=== PATIENT | female | born 1935 | race Caucasian/White ===

== ENCOUNTER 2022-06-14 08:34 | Day surgery (SDC) | payer MEDICARE ==
[2022-06-13 14:55] VITALS: BMI 29.9
[2022-06-14 10:56] LABS: Anion Gap 15 mmol/L (10-20); BUN (Urea Nitrogen) 14 mg/dL (9.8-20.1); Calc. Creatinine Clearance 109 mL/min (70-130); Carbon Dioxide 26 mmol/L (23-31); Chloride 102 mmol/L (98-107); Estimated GFR 91; Glucose 159 mg/dL (83-110); Sodium 139 mmol/L (136-145)
[2022-06-14] MEDS ORDERED: Fentanyl 100 MCG/2 ML VIAL ONE (11:45)
[2022-06-14] MEDS ORDERED: Midazolam HCl 2 mg/2 ml Vial ONE (11:45)
[2022-06-14] MEDS ORDERED: Ondansetron PF 4 MG/2 ML Vial ONE (11:45)
[2022-06-14] MEDS ORDERED: PROPOFOL 20 ML ONE (11:45)
[2022-06-14] MEDS ORDERED: Dexamethasone 20 MG/5 ML VIAL ONE (11:45)
[2022-06-14] MEDS ORDERED: Lidocaine 2% PF 5 ML VIAL ONE (11:45)
[2022-06-14] MEDS ORDERED: Oxymetazoline HCl 0.05% ( 15 ML ) ONE (13:22)
== END 2022-06-14 15:30 | disposition home or self-care (01) ==
LOC: CSHSDC 08:34
PROVIDERS: ATTEND Otolaryngology Otolaryngic Allergy
PROC: 093K8ZZ Control Bleeding in Nasal Mucosa and Soft Tissue, Via Natural or Artificial Opening Endoscopic (ICD-10-PCS; principal; 2022-06-14)
DX: R04.0 Epistaxis (principal); E04.0 Nontoxic diffuse goiter; H90.3 Sensorineural hearing loss, bilateral; F41.9 Anxiety disorder, unspecified; F32.A Depression, unspecified; Z79.2 Long term (current) use of antibiotics; Z79.899 Other long term (current) drug therapy; Z20.822 Contact with and (suspected) exposure to COVID-19; Z87.891 Personal history of nicotine dependence; Z98.890 Other specified postprocedural states
CPT/HCPCS: 31238; 80048; 87811; 93005; C1776; 93010; J1100; J2001; J2250; J2405; J2704; J3010